=== PATIENT | female | born 1985 | race Caucasian/White ===

== ENCOUNTER 2018-09-26 19:29 | Inpatient (IN) | payer OTHER ==
[~2018-09-26] VITALS: Ht 154.9 cm; Wt 76.2 kg
[2018-09-26 19:34] VITALS: Ht 154.9 cm; Wt 76.2 kg
--- NOTE | 2018-09-26 19:48 | NUR ---
PT C/O CHEST PAIN, UPPER BACK PAIN, AND LEFT ARM PAIN SINCE 1400. PT REPORTS THE CHEST PAIN PRESSURE, BUT HAS RESOLVED. PT REPORTS 6/10 ACHEY PAIN IN THE UPPER BACK AND LEFT ARM. PT STS THAT SHE WAS JUST SITTING AT HER DESK AT WORK WHEN THE PAIN CAME ON. PT REPORTS NO OTHER S/S. PT DENIES SOB, DENIES N/V. 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 NAD NOTED AT THIS TIME.
--- NOTE | 2018-09-26 20:00 | NUR ---
PT AMBULATED TO RESTROOM W/ STEADY GAIT TO PROVIDE URINE SAMPLE
[2018-09-26 20:19] LABS: BASOPHIL % 0.8 % (0-2); PLATELET COUNT 329 x10^3mcL (130-400); RED CELL DISTRIBUTION WIDTH 17.5 % (11.5-14.5)
[2018-09-26 20:25] LABS: CARBON DIOXIDE 27.2 mmol/L (21-32); CHLORIDE SERUM 105 mmol/L (98-107); CREATININE SERUM 0.8 mg/dL (0.6-1.0); GFR1 > 60 mL/min; GLUCOSE SERUM 92 mg/dL (74-106); POTASSIUM SERUM 3.6 mmol/L (3.5-5.1); SODIUM SERUM 141 mmol/L (136-145)
[2018-09-26 20:39] LABS: ALBUMIN 3.5 g/dL (3.4-5.0); ALKALINE PHOSPHATASE 74 U/L (46-116); ALT/SGPT 34 U/L (14-59); AST/SGOT 23 U/L (15-37); BILIRUBIN TOTAL 0.2 mg/dL (0.20-1.00); FREE T4 0.87 ng/dL (0.76-1.46); TOTAL PROTEIN, SERUM 8.1 g/dL (6.4-8.2)
--- NOTE | 2018-09-26 20:39 | NUR ---
PT AWAKE AND ALERT, LAYING IN POSITION OF COMFORT. RESPS E/U, NAD NOTED. BED IN LOW AND LOCKED POSITION, CALL LIGHT W/IN REACH. AWAITING MSE.
[2018-09-26 20:43] LABS: microscopic required? NO
[2018-09-26 20:49] LABS: urine erythrocyte NEGATIVE (NEGATIVE)
[2018-09-26 21:01] LABS: AMPHETAMINE QUAL UR NONE DETECTED (See below)
--- NOTE | 2018-09-26 21:21 | NUR ---
PT AWAKE AND ALERT, IN POSITION OF COMFORT. MD AT BEDSIDE FOR EXAM.
--- NOTE | 2018-09-26 21:25 | NUR ---
EMT AT BEDSIDE FOR EKG. PT AWAKE AND ALERT, RESPS E/U, NAD NOTED. PT LAYING IN POSITION OF COMFORT, 2 BED RAILS UP, BED IN LOW AND LOCKED POSITION, CALL LIGHT W/IN REACH.
--- NOTE | 2018-09-26 21:39 | NUR ---
MEDICATION ADMINISTERED PER MD ORDER
--- NOTE | 2018-09-26 22:33 | NUR ---
HEPARIN DRIP STARTED PER PROTOCOL AND MD ORDER
--- NOTE | 2018-09-26 22:41 | NUR ---
RECIEVED CALL FROM PHARMACIST. PER PHARMACIST, HE PUT IN ORDER FOR 1,000ML AND 5,000ML BOLUS PER PROTOCOL. PHARMACIST ALSO REQUEST MD TO PUT IN PROCOL ORDERS FOR APPT. DR GONZALEZ MADE AWARE
--- NOTE | 2018-09-27 00:04 | NUR ---
SPOKE WITH BOY MEJIA FROM [employer]. PER BOY PT IS CURRENTLY UNSAFE TO TRANSFER BEFORE OF TROPONIN LEVELS. REQUESTED LABS AND EKG FAXED PROVIDED FAX NUMBER [phone]. WILL CALL BACK.
--- NOTE | 2018-09-27 00:43 | NUR ---
PT LAYING ON GURNEY IN POSITION OF COMFORT. NO S/S OF DISTRESS. RESP E/U. FRIEND AT BEDSIDE. PT STS SHE IS CURRENTLY NOT IN PAIN. COMFORT MEASURES IMPLEMENTED. CALL LIGHT W/IN REACH. WILL CONTINUE TO MONITOR.
[2018-09-27 01:22] LABS: CHOLESTEROL/HDL RATIO 3.7; MAGNESIUM 1.9 mg/dL (1.8-2.4); PHOSPHOROUS 4.2 mg/dL (2.5-4.9)
--- NOTE | 2018-09-27 01:52 | NUR ---
PT SITTING ON GURNEY IN POSITION OF COMFORT. FAMILY AT BEDSIDE. NO S/S OF DISTRESS. RESP E/U. PT STS SHE IS CURRENTLY IN NO PAIN. COMFORT MEASURES IMPLEMENTED. WILL CONTINUE TO MONITOR.
--- NOTE | 2018-09-27 02:18 | NUR ---
REPORT CALLED TO NIKKI STEVENSON TO ASSUME CARE OF PT
--- NOTE | 2018-09-27 02:23 | NUR ---
PT TRANSFERRED TO TELE FLOOR ACCOMPANIED BY NURSE AND EMT. PT CONMNECTED TO MONITOR DURING TRANSFER. NO S/S OF DISTRESS. RESP E/U. RN MADE AWARE OF HEPRAIN DRIP, TO CONTINUE AFTER TRANSFER. RN AT BEDSIDE TO ASSUME CARE.
[2018-09-27 03:02] VITALS: BP 100/59
--- NOTE | 2018-09-27 03:15 | NUR ---
Admitted this 33y/o female from ED via [facility]. Alert and oriented. No respiratory distress noted on room air. Denies pain at this time. Denies n/v. Skin intact. Admission assessment done. Normal sinus rhythm on tele #21. Heparin drip @ 900units/hr. Will recheck PTT per protocol. Call light within reach. Will cont.to monitor.
[2018-09-27 05:07] LABS: PLATELET COUNT 295 x10^3mcL (130-400); RED CELL DISTRIBUTION WIDTH 17.5 % (11.5-14.5)
[2018-09-27 05:08] LABS: BASOPHIL % 0.7 % (0-2)
[2018-09-27 05:16] LABS: CALCIUM 8.8 mg/dL (8.5-10.1); CHLORIDE SERUM 105 mmol/L (98-107); CREATININE SERUM 0.7 mg/dL (0.6-1.0); GFR1 > 60 mL/min; GLUCOSE SERUM 94 mg/dL (74-106); POTASSIUM SERUM 3.8 mmol/L (3.5-5.1); SODIUM SERUM 137 mmol/L (136-145)
[2018-09-27 05:27] VITALS: BP 95/64
--- NOTE | 2018-09-27 05:51 | NUR ---
Received PTT level 53.2 No change per protocol. Heparin drip @ 900units /hr remained. Will repeat PTT in 4hrs.
--- NOTE | 2018-09-27 07:05 | NUR ---
RECEIVED BED SIDE REPOR TFORM DENTAL LABORATORY MANAGER NURSE. PATIENT IS RESTING COMFORTABLY IN BED,TALKING ON THE CELL PHONE. NO APPARENT SIGNS OF SOB, RESPIRATORY DISTRESS. PATIENT DENIES PAIN AT THIS TIME. FAMILY AT BEDSIDE. IV INFUASING HEPARIN TO THE LAC AT 900 UNITS/HR. (9ML/HR). LAST PTT IS 53.2, NEXT PTT DRAW DUE AT 0830. PATIENT IS ION ROOM AIR. BED IN LOW POSITION, BED RAILS UP X2. QUESTIONS AND CONCERNS ADDRESSED. SAFETY PRECAUTIONS IN PLACE.
--- NOTE | 2018-09-27 08:05 | NUR ---
PATIENT IS RESTING COMFORTABLY INBED. NO APPARENT SIGNS OF SOB, RESPIRATORY DISTRESS OR PAIN. PATIENT DENIES CHEST PAIN AT THIS TIME. DENIES MARSHALL, N/V, DIZZINESS. IV HEPARIN INFUSING WELL AT 900 UNITS PER HOUR. PATIENT DENIES OTHER NEEDS AT THIS TIME. FAMILY AT BEDSIDE. SAFETY PRECAUTIONS IN PLACE.
[2018-09-27 09:47] VITALS: BP 103/59
--- NOTE | 2018-09-27 10:39 | NUR ---
PATIENT IS STABLE NO APPARENT SIGNS OF SOB RESPIRATORY DISTRESS, PATIENT DENIES CHEST PAIN AT THIS TIME. DR BLAIR AND RESIDENT TEAM AT BEDSIDE. POSSIBLE ORDER TO STOP HEPARIN DRIP. SECOND PTT IN THEREPEUTIC NO CHANGE RANGE. 53.2 AND 49.2. SAFETY PRECAUTION IN PLACE. QUESTIONS AND CONCERNS ADDRESSED.
--- NOTE | 2018-09-27 11:21 | NUR ---
PATIENT IS STABLE NO APPAERRNT SIGNS OF SOB. PATIENT DENIES PAIN AT THIS TIME. FAMILY AT BEDSIDE. RECEIVED ORDER TO DC HEPARIN BOLUS AND DRIP. HEPARIN DC'ED. PATIENT TOLORATED WELL. SAFETY PRECAUTIONS IN PLACE. QUESTIONS AND CONCERNS ADDRESSED.
--- NOTE | 2018-09-27 12:00 | NUR ---
SPOKE WITH DR TALAVERA NOTIFIED ABOUT DC ORDER FOR HEPARIN DRIP AND START ON LOVENOX PER DR FRANKS. PER DR TALAVERA START PATIENT ON LOVENOX AGAIN. DR TALAVERA GAVE TELEPHONE ORDER TO RESTART HEPARIN DRIP AT 900IU PER HR. SPOKE WITH PHARMACY WILL ORDER PTT IN 6 HOURS.
[2018-09-27 13:35] VITALS: BP 101/65
--- NOTE | 2018-09-27 13:59 | NUR ---
PATIENT COMPLAINING OF A HEADACHE 02/21. ADMINISTERED MEDS PER EMAR. PATIENT DENIES CHEST PAIN AT THIS TIME. SAFETY PRECAUTIONS IN PLACE.
[2018-09-27 14:10] LABS: TOTAL IRON BINDING CAPACITY 422 ug/dL (250-450)
[2018-09-27 14:13] LABS: IRON 21 ug/dL (50-170)
--- NOTE | 2018-09-27 15:45 | NUR ---
QUARRYING SPECIALIST AT BEDSIDE. PATIENT IS TOLORATING WELL. PATIENT DENIES NEEDS AT THIS TIME. FAMILY AT BEDSIDE.SAFETY PRECAUTIONS IN PLACE.
[2018-09-27] MEDS ORDERED: ASP325 PO (17:46)
[2018-09-27] MEDS ORDERED: ZOFI IV (17:46)
[2018-09-27] MEDS ORDERED: NIT0.4 SL (17:46)
[2018-09-27] MEDS ORDERED: TYL325 PO (17:46)
[2018-09-27 18:18] VITALS: BP 91/61
--- NOTE | 2018-09-27 18:31 | NUR ---
RECEIVED CALL FROM VICKIE AT [facility] REGARDING TRANSFER. ROMM IS [id number] ACCEPTING MD IS DR. SKELTON. NUMBER FOR REPORT [phone] ASK TRANSPORTATION TO STOP BY ED TO FINISH REGISTRATION. WILL CALL RESIDENT TO FINALIZE TRANSFER ORDER AND CONTACT DR TALAVERA TO DTERMINE HOW TO TRANSFER PATIENT WITH REGARDS TO HEPARIN DRIP.
--- NOTE | 2018-09-27 18:51 | NUR ---
PATIENT IS STABLE ALERT ORIENTED X4. NO APPARENT SIGNS OF SOB, RESPIRATORY DISTRESS. PATIENT DENIES PAIN AT THIS TIME. PATIENT IS AMBULATORY. IS ON ROOM AIR. IS ON HEPARIN DRIP AT 900 IU/HR. AWATING NEXT PTT. ON TELE [address]. PATIENT WILL BE TRANSFERED TO [facility] FOR [facility]IAC [facility]. ACCEPTING MD IS DR SKELTON. REPORT TO [phone]. SAFETY PRECAUTION IN PLACE. QUESTIONS AND CONCERNS ADDRESSED.WILL ENDORSE CARE TO [employer] CERTIFIED NETWORK ASSOCIATE NURSE.
--- NOTE | 2018-09-27 19:30 | NUR ---
RECEIVED PT IN BED AWAKE AND TALKING TO FAMILY MEMBERS AT BEDSIDE. SHE IS ALERT AND ORIENTED X4. SHE DENIES CHEST PAIN AND PALPITATIONS AT THIS TIME. ON HEPARIN DRIP AT 900 UNITS/HR VIA [facility]. PT FOR TRANSFER TO [facility] TONIGHT ORDERED.
--- NOTE | 2018-09-27 19:34 | NUR ---
CALLED BERNADETTE LORENZO SPOKE TO ANDREINA TO GIVE REPOR TON PATIENT IN PREPEARTION FOR [place] [facility]
--- NOTE | 2018-09-27 20:00 | NUR ---
PTT=43.5. REBOLUSED 3000 UNITS HEPARIN AND HEPARIN DRIP RATE INCREASED BY 200 UNITS/HR ( NOW 1100).
[2018-09-27 20:10] VITALS: BP 102/64
--- NOTE | 2018-09-27 20:26 | NUR ---
PT SIGNED PAPERS FOR DISCHARGE.
== END 2018-09-27 21:03 | disposition short-term general hospital (02) | DRG 190 ==
LOC: ED 19:29 → DU 09-27 01:15
PROVIDERS: Emergency Medicine; ADMIT Internal Medicine
DX: I21.4 Non-ST elevation (NSTEMI) myocardial infarction (principal); I25.42 Coronary artery dissection; D50.9 Iron deficiency anemia, unspecified; M06.9 Rheumatoid arthritis, unspecified; E66.9 Obesity, unspecified; Z68.32 Body mass index [BMI] 32.0-32.9, adult
CPT/HCPCS: 84439; 85378; J1644; Q9967

== ENCOUNTER 2018-11-27 18:05 | Emergency (ER) | payer OTHER ==
[~2018-11-27] VITALS: Ht 154.9 cm; Wt 76.7 kg
[~2018-11-27 18:05] MED LIST: ASP325 PO; NIT0.4 SL; TYL325 PO; ZOFI IV
[2018-11-27 18:29] VITALS: Ht 154.9 cm; Wt 76.7 kg
[2018-11-27 20:21] LABS: BASOPHIL % 0.4 % (0-2); PLATELET COUNT 302 x10^3mcL (130-400)
[2018-11-27 20:23] LABS: RED CELL DISTRIBUTION WIDTH 19.4 % (11.5-14.5)
[2018-11-27 20:25] LABS: AMPHETAMINE QUAL UR NONE DETECTED (See below)
[2018-11-27 20:25] LABS: CALCIUM 9.2 mg/dL (8.5-10.1); CARBON DIOXIDE 26.8 mmol/L (21-32); CHLORIDE SERUM 105 mmol/L (98-107); CREATININE SERUM 0.7 mg/dL (0.6-1.0); GFR1 > 60 mL/min; GLUCOSE SERUM 94 mg/dL (74-106); POTASSIUM SERUM 3.8 mmol/L (3.5-5.1); SODIUM SERUM 140 mmol/L (136-145)
[2018-11-27 20:29] LABS: ALBUMIN 3.5 g/dL (3.4-5.0); ALKALINE PHOSPHATASE 78 U/L (46-116); ALT/SGPT 24 U/L (14-59); AST/SGOT 13 U/L (15-37); BILIRUBIN TOTAL 0.21 mg/dL (0.20-1.00); TOTAL PROTEIN, SERUM 7.9 g/dL (6.4-8.2)
[2018-11-27 23:03] VITALS: BP 101/70
== END 2018-11-27 23:03 | disposition home or self-care (01) ==
LOC: ED 18:05
PROVIDERS: Emergency Medicine
DX: R07.89 Other chest pain (principal); M06.9 Rheumatoid arthritis, unspecified; Z86.79 Personal history of other diseases of the circulatory system; Z88.0 Allergy status to penicillin
CPT/HCPCS: 36415; 83880

== ENCOUNTER 2019-06-12 07:42 | Emergency (ER) | payer OTHER ==
[~2019-06-12] VITALS: Ht 154.9 cm; Wt 76.2 kg
[2019-06-12 07:45] VITALS: Ht 154.9 cm; Wt 76.2 kg
[2019-06-12 08:16] VITALS: BP 107/67
[2019-06-12 08:53] LABS: UA SPECIFIC GRAVITY <=1.005 (1.005-1.035); microscopic required? YES; urine erythrocyte 2+ (NEGATIVE)
== END 2019-06-12 08:16 | disposition home or self-care (01) ==
LOC: ED 07:42
PROVIDERS: Emergency Medicine
DX: N39.0 Urinary tract infection, site not specified (principal); M06.9 Rheumatoid arthritis, unspecified; Z98.890 Other specified postprocedural states; Z88.0 Allergy status to penicillin

== ENCOUNTER 2019-09-18 17:53 | Emergency (ER) | payer OTHER ==
[~2019-09-18] VITALS: Ht 154.9 cm; Wt 79.8 kg
[2019-09-18 17:58] VITALS: Ht 154.9 cm; Wt 79.8 kg
[2019-09-18 18:40] LABS: BASOPHIL % 0.7 % (0-2); PLATELET COUNT 352 x10^3mcL (130-400)
[2019-09-18 18:44] LABS: RED CELL DISTRIBUTION WIDTH 18.7 % (11.5-14.5)
[2019-09-18 18:49] LABS: CALCIUM 9.1 mg/dL (8.5-10.1); CARBON DIOXIDE 26.4 mmol/L (21-32); CHLORIDE SERUM 102 mmol/L (98-107); CREATININE SERUM 0.9 mg/dL (0.6-1.0); GFR1 > 60 mL/min; GLUCOSE SERUM 96 mg/dL (74-106); POTASSIUM SERUM 3.5 mmol/L (3.5-5.1); SODIUM SERUM 139 mmol/L (136-145)
[2019-09-18 18:53] LABS: ALBUMIN 3.8 g/dL (3.4-5.0); ALKALINE PHOSPHATASE 50 U/L (46-116); ALT/SGPT 25 U/L (14-59); AST/SGOT 19 U/L (15-37); BILIRUBIN TOTAL 0.24 mg/dL (0.20-1.00); LIPASE 115 IU/L (73-393); TOTAL PROTEIN, SERUM 7.9 g/dL (6.4-8.2)
[2019-09-18 20:31] VITALS: BP 103/63
== END 2019-09-18 20:31 | disposition home or self-care (01) ==
LOC: ED 17:53
PROVIDERS: Emergency Medicine
DX: N20.0 Calculus of kidney (principal); Z88.0 Allergy status to penicillin; M06.9 Rheumatoid arthritis, unspecified; Z98.890 Other specified postprocedural states
CPT/HCPCS: J1885; J2270; J2405; J7030